=== PATIENT | male | born 1955 | race Caucasian/White ===

== ENCOUNTER → 2017-01-12 | Day surgery (SDC) | payer OTHER ==
[~2017-01-12] VITALS: Ht 170.2 cm; Wt 130.7 kg
[~2017-01-12] MED LIST: ALLEGRA60 MG PO; ASPIRIN81 MG PO; COLACE100 MG PO; CPAP; HYDROCODON-ACE1 EAC4 PO; MILK OF MA400 MG/5 M PO; NORVASC5 MG PO; TOPROL XL50 MG PO; TYLENOL325 MG PO; ZOCOR40 MG PO; ZYLOPRIM300 MG PO
== END | disposition disaster alternative care site (69) ==
LOC: GPOC 01-05 13:00 → GEND 07:17 → GPOC 13:00
PROC: 0DJD8ZZ Inspection of Lower Intestinal Tract, Via Natural or Artificial Opening Endoscopic (ICD-10-PCS; principal; 2017-01-12)
DX: Z12.11 Encounter for screening for malignant neoplasm of colon (principal); Z86.010 Personal history of colon polyps
CPT/HCPCS: J7030